=== PATIENT | female | born 1990 | race Caucasian/White ===

== ENCOUNTER 2017-12-02 13:30 | Day surgery (SDC) | payer BC ==
[2017-12-01 09:33] VITALS: BMI 29.2
[2017-12-02] MEDS ORDERED: PROPOFOL 20 ML ONE ×3 (15:05)
[2017-12-02] MEDS ORDERED: MIDAZOLAM HCL 2 MG/2 ML SINGLE DOSE VIAL ONE (15:05)
[2017-12-02] MEDS ORDERED: oxyCODONE HCL 5 MG TABLET PO PRN (15:11)
[2017-12-02] MEDS ORDERED: ACETAMINOPHEN 325 MG TABLET (FP) PO PRN (15:11)
[2017-12-02] MEDS ORDERED: ONDANSETRON 4 MG/2 ML VIAL IVPUSH PRN (15:11)
[2017-12-02] MEDS ORDERED: LACTATED RINGERS SOLUTION 1,000 ML IV SCH (15:15)
--- NOTE | 2017-12-02 15:23 | HP ---
History & Physical Update - History History: Change (see notes) Currently as noted:: Uterine polyp, infertility - Physical Physical: No Change - Assessment Currently as noted:: Uterine polyp, infertility - Plan Currently as noted:: Hysteroscopy, excision of polyp, D&C
[2017-12-02] MEDS ORDERED: ceFAZolin SODIUM 1 GM VIAL IVPB ONE (15:35)
[2017-12-02] MEDS ORDERED: ceFAZolin SODIUM 1 GM VIAL ONE (15:35)
[2017-12-02] MEDS ORDERED: LIDOCAINE HCL/PF 2% SDV 5ML VIAL ONE (15:42)
[2017-12-02] MEDS ORDERED: KETOROLAC TROMETHAMINE 30 MG/1 ML VIAL ONE ×2 (15:42→15:43)
--- NOTE | 2017-12-02 16:24 | OP ---
Operative Note - Note: Operative Date: 12/02/17 Pre-Operative Diagnosis: Uterine polyp, infertility Operation: Hysteroscopy, excision of polyp Findings: Large left uterine wall polyp ~2cm, near fundus Post-Operative Diagnosis: Same as Pre-op Surgeon: Pepe Munroe Anesthesiologist/CNP: Trisha Joe Anesthesia: General Specimens Removed: Uterine polyp Estimated Blood Loss (mls): 5 Blood Volume Replaced (mls): 0 Fluid Volume Replaced (mls): 600 Operative Report Dictated: Yes
[2017-12-02 17:44] VITALS: PULSE 69; TEMP 98.5
[2017-12-02 19:58] VITALS: BP 113/71
--- NOTE | 2017-12-03 07:44 | OP ---
DATE OF OPERATION: 12/02/2017 PREOPERATIVE DIAGNOSIS: Uterine polyp, infertility. POSTOPERATIVE DIAGNOSIS: Uterine polyp, infertility. PROCEDURE: Hysteroscopy, excision of polyp. SURGEON: Pepe Munroe MD ANESTHESIOLOGIST: Trisha Joe DO ANESTHESIA: General. COMPLICATIONS: None. ESTIMATED BLOOD LOSS: 5 mL. INTRAVENOUS FLUIDS: 600 mL. PATHOLOGY: Uterine polyp. COMPLICATIONS: None. FINDINGS: Examination under anesthesia revealed a small anteverted uterus with no pelvic or adnexal masses. Hysteroscopy revealed a large uterine polyp approximately 2 cm in size protruding from the left uterine sidewall near the fundus. DESCRIPTION OF PROCEDURE: The patient was met preoperatively. Risks, benefits, and alternatives of surgery were discussed in detail. All questions were answered. The patient was brought to the OR with IV running. She was placed on the surgical table in the supine position. The general anesthesia was achieved without difficulty. The patient was then placed in a dorsal lithotomy position using adjustable Jordan stirrups. The patient was examined under anesthesia, with the findings as described above. The timeout procedure was conducted as per standard protocol. The patient was then prepped and draped in the usual sterile fashion. A weighted speculum was introduced inside the vagina, with good visualization of the cervix. The cervix was grasped with a single-tooth tenaculum. The cervical os was dilated to accommodate a size 21 Vidales dilator. A hysteroscope was gently introduced inside the uterine cavity. Survey of the uterine cavity revealed a large polyp protruding from the left uterine sidewall measuring approximately 2 cm in size and located near the fundus. A Truclear device was then used to completely resect the uterine polyp. Once this was accomplished, a normal uterine cavity was observed. Both fallopian tube ostia were noted and appeared to be within normal limits. There were no other lesions noted inside the uterus. The hysteroscope was removed from the uterine cavity. Good hemostasis was noted. All of the instruments were removed from the patient. Sponge, lap, and needle counts were correct. The hysteroscopy fluid deficit was 30 mL. The patient tolerated the procedure well and was transferred to recovery room in stable condition. Latasha [id number]
--- NOTE | 2017-12-04 18:24 | PATH ---
Surgical Pathology Report Patient Name: FARIDA MARTÍNEZ [facility]. Rec. #: [id number] /Age/Gender: 1990 (Age: 27) / F Account: [id number] Location: [facility] Taken: 12/02/2017 Received: 12/03/2017 Reported: 12/04/2017 Physicians: Pepe Munroe M.D. 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 Electronically Signed Michelle Perez M.D. Gross Description Received in formalin labeled "polyp," is a 2.8 x 2.5 x 0.3 cm aggregate of sanders soft tissue fragments. The formalin is filtered and the specimen is entirely submitted in one cassette. /12/03/2017 saudi/12/03/2017
== END 2017-12-02 18:10 | disposition home or self-care (01) ==
LOC: JASU-SURG 13:30
PROVIDERS: ATTEND Obstetrics & Gynecology
PROC: 0UB98ZX Excision of Uterus, Via Natural or Artificial Opening Endoscopic, Diagnostic (ICD-10-PCS; principal; 2017-12-02 15:00)
DX: N84.0 Polyp of corpus uteri (principal); N97.9 Female infertility, unspecified
CPT/HCPCS: 84703; 86850; 86900; 86901; 94760

== ENCOUNTER 2019-08-06 20:57 | Emergency (ER) | payer OTHER, BC ==
[2019-08-06 21:05] VITALS: BP 107/73; PULSE 76; TEMP 99.9; BMI 28.3
[2019-08-06] MEDS ORDERED: OSELTAMIVIR PHOSPHATE 75 MG CAPSULE PO ONE (21:19)
[2019-08-06] MEDS ORDERED: OSELTAMIVIR PHOSPHATE 75 MG CAPSULE ONE (21:19)
--- NOTE | 2019-08-06 21:24 | PDOC ---
Documentation entered by Gurjit Alegre SCRIBE, acting as scribe for Tiffany Aparicio MD. Tiffany Aparicio MD: This documentation has been prepared by the Sis pope Xhesika, SCRIBE, under my direction and personally reviewed by me in its entirety. I confirm that the documentation accurately reflects all work, treatment, procedures, and medical decision making performed by me. History of Present Illness - General Chief Complaint: Cold Symptoms Stated Complaint: VIRAL SYMPTOMS History Source: Patient Exam Limitations: No Limitations - History of Present Illness Initial Comments: 08/06/19 21:21 The patient is a 29 y/o female with no PMH who presents to the ED for bodychaes , chills, nausea and fever since this morning. The patient states she took NyQuil at 7:30pm and was not able to tolerate it. Patient states she got the Flu shot this year. Pt states her menstrual period is due in 5 days. PAST MEDICAL HISTORY: no significant history PAST SURGICAL HISTORY: no significant history FAMILY HISTORY: no pertinent history SOCIAL HISTORY: Pt lives with family and is employed. MEDICATIONS: reviewed ALLERGIES: As per nursing notes 08/06/19 21:22 Assessment and plan: This is a 29-year-old female who comes in complaining of flulike symptoms headache, body ache, fever, nausea chills. Patient did get her flu shot this year however given her symptoms and the ineffectiveness of the flu shot she most likely does have the flu. Since symptoms are less than 24 hours patient will be started on Tamiflu and follow-up with her primary care doctor. Past History - Past Medical History Allergies/Adverse Reactions: Allergies Allergy/AdvReac Type Severity Reaction Status Date / Time No Known Allergies Allergy Verified 12/02/17 13:59 Home Medications: Ambulatory Orders Oseltamivir Phosphate [Tamiflu -] 75 mg PO DAILY #10 capsule 08/06/19 Anemia: No Asthma: No Cancer: No Cardiac Disorders: No CVA: No COPD: No CHF: No Dementia: No Diabetes: No GI Disorders: No Disorders: No HTN: No Hypercholesterolemia: No Liver Disease: No Seizures: No Thyroid Disease: No - Psycho Social/Smoking Cessation Hx Smoking History: Never smoked Have you smoked in the past 12 months: No Hx Alcohol Use: Yes (hardly ever) Substance Use Type: None Hx Substance Use Treatment: No Review of Systems - Review of Systems Able to Perform ROS?: Yes Comments:: 08/06/19 21:21 General: + fevers or chills. + body aches. No weakness, no weight loss HEENT: No change in vision. No sore throat,. No ear pain CardioVascular: No chest pain or shortness of breath Respiratory:No cough, or wheezing. Gastrointestinal: +nausea. No vomiting, diarrhea or constipation, No rectal bleeding Genitourinary: No dysuria, hematuria, or frequency Musculoskeletal: No joint or muscle pain or swelling Neurologic: No headache, vertigo, dizziness or loss of consciousness Psychiatric: nor depression Skin: No rashes or easy bruising Endocrine: no increased thirst or abnormal weight change Allergic: no skin or latex allergy All other systems reviewed and normal *Physical Exam - Vital Signs Last Vital Signs Temp Pulse Resp BP Pulse Ox 99.9 F H 76 16 107/73 98 08/06/19 20:59 08/06/19 20:59 08/06/19 20:59 08/06/19 20:59 08/06/19 20:59 - Physical Exam 08/06/19 21:21 GENERAL: The patient is awake, alert, and fully oriented, in no acute distress. HEAD: Normal with no signs of trauma. EYES: Pupils equal, round and reactive to light, extraocular movements intact, sclera anicteric, conjunctiva clear. EXTREMITIES: Normal range of motion, no edema. NEUROLOGICAL: Normal speech, normal gait. PSYCH: Normal mood, normal affect. SKIN: Warm, Dry, normal turgor, no rashes or lesions noted. Discharge - Discharge Information Problems reviewed: Yes Clinical Impression/Diagnosis: Influenza-like illness Condition: Stable Disposition: HOME - Admission No - Additional Discharge Information Prescriptions: Oseltamivir Phosphate [Tamiflu -] 75 mg PO DAILY #10 capsule - Follow up/Referral - Patient Discharge Instructions Additional Instructions: Take Tamiflu 1 tablet twice a day for 5 days. Take Tylenol or Motrin as needed for fevers, headache, body ache. Return to the emergency department immediately with ANY new, persistent or worsening symptoms. Continue any medications as previously prescribed by your physician. You should follow up with your primary doctor as soon as possible regarding today's emergency department visit. . Please make sure your doctor reviews the results of your emergency evaluation. Thank you for coming to the Emergency Department today for your care. It was a pleasure to see you today. Please note that your evaluation is INCOMPLETE until you follow-up with your doctor. - Post Discharge Activity
== END 2019-08-06 21:29 | disposition home or self-care (01) ==
LOC: FER 20:57
DX: J11.1 Influenza due to unidentified influenza virus with other respiratory manifestations (principal)
CPT/HCPCS: 81025; 99281-25